=== PATIENT | female | born 1990 | race Caucasian/White ===

== ENCOUNTER 2020-05-24 12:53 | Emergency (ER) | payer MEDICAID ==
[~2020-05-24] VITALS: Ht 167.6 cm; Wt 72.7 kg
[2020-05-24] MEDS ORDERED: 0.9% SODIUM CHLORIDE 10 ML SYRINGE IVP PRN (13:30)
[2020-05-24] MEDS ORDERED: SODIUM CHLORIDE 0.9% 1,000 ML IV ONE ×2 (13:30→16:15)
[2020-05-24 14:27] LABS: BASOPHILS % (AUTO) 0.5 % (0.0-2.0); EOSINOPHILS % (AUTO) 0.8 % (1.0-6.0); HEMATOCRIT 42.7 % (36-46); HEMOGLOBIN 14.2 g/dL (12.0-16.0); LYMPHOCYTES # (AUTO) 1.3 K/uL (1.0-4.8); LYMPHOCYTES % (AUTO) 15.4 % (22.0-44.0); MEAN CORPUSCULAR HEMOGLOBIN 29.6 pg (26.0-34.0); MEAN CORPUSCULAR HGB CONC 33.2 G/dL (31.0-37.0); MEAN CORPUSCULAR VOLUME 89 fL (80-100); MONOCYTES # (AUTO) 0.5 K/uL (0.1-1.0); MONOCYTES % (AUTO) 5.6 % (2.0-9.0); NEUTROPHILS # (AUTO) 6.7 K/uL (1.8-7.7); NEUTROPHILS % (AUTO) 77.7 % (40.0-70.0); PLATELET COUNT (AUTO) 170 K/uL (150-450); RED BLOOD CELL COUNT(AUTO) 4.79 MIL/uL (4.00-5.20); RED CELL DISTRIBUTION WIDTH 13.6 % (11.5-14.5)
[2020-05-24 14:41] LABS: ANION GAP 13 mmol/L (8-16); CALCIUM, TOTAL 9.3 mg/dL (8.8-10.5); CARBON DIOXIDE 22 mmol/L (22-29); CHLORIDE 106 mmol/L (98-107); GLUCOSE,RANDOM 76 mg/dL (70-110); POTASSIUM 3.7 mmol/L (3.5-5.1); SODIUM SERUM 141 mmol/L (136-145); UREA NITROGEN, BLOOD 21 mg/dL (7-18)
[2020-05-24 14:44] LABS: GLOMERULAR FILTR. RATE CALC > 60 mL/min (>60)
[2020-05-24 14:47] LABS: ALANINE AMINOTRANSFERASE 11 U/L (12-78); ALBUMIN 3.9 g/dL (3.4-5.0); ALKALINE PHOSPHATASE 77 U/L (46-116); AMMONIA 49 umol/L (11-32); ASPARTATE AMINOTRANSFERASE 15 U/L (15-37); BILIRUBIN,TOTAL 0.7 mg/dL (0.1-1.0); CREATINE KINASE, TOTAL ONLY 50 U/L (26-192); TOTAL PROTEIN, SERUM 8.3 g/dL (6.4-8.2)
[2020-05-24 14:51] LABS: APPEARANCE,URINE CLOUDY (CLEAR); BILIRUBIN,URINE PRELIM. POSITIVE (NEGATIVE); GLUCOSE, URINE (UA) NEGATIVE (NEGATIVE); KETONES,URINE 40 mg/dL (NEGATIVE); LEUKOCYTE ESTERASE ,URINE NEGATIVE (NEGATIVE); NITRATE,URINE NEGATIVE (NEGATIVE); OCCULT BLOOD,URINE NEGATIVE (NEGATIVE); PROTEIN,URINE TRACE (NEGATIVE)
[2020-05-24 14:51] LABS: TROPONIN I < 0.02 ng/mL (0.00-0.05)
[2020-05-24 14:54] LABS: AMPHET/METH SCREEN,URINE POSITIVE (NEGATIVE); BARBITURATE SCREEN, URINE NEGATIVE (NEGATIVE); BENZODIAZEPINES SCREEN,URINE NEGATIVE (NEGATIVE); CANNABINOID SCREEN,URINE POSITIVE (NEGATIVE); COCAINE SCREEN,URINE NEGATIVE (NEGATIVE); METHADONE SCREEN, URINE NEGATIVE (NEGATIVE); OPIATE SCREEN,URINE NEGATIVE (NEGATIVE); PHENCYCLIDINE SCREEN,URINE NEGATIVE (NEGATIVE)
[2020-05-24 15:03] LABS: D-DIMER 1.93 mg/L FEU (0.00-0.50); PROTHROMBIN TIME 10.8 SEC (9.4-11.6)
[2020-05-24] MEDS ORDERED: LACTULOSE 20 GM/30 ML SOLUTION UDCUP PO ONE (16:00)
[2020-05-24 17:38] VITALS: BP 126/63
== END 2020-05-24 18:07 | disposition home or self-care (01) ==
LOC: EDBD 12:53 → EMS 12:53
DX: Z03.818 Encounter for observation for suspected exposure to other biological agents ruled out (principal); E86.0 Dehydration; F15.10 Other stimulant abuse, uncomplicated
CPT/HCPCS: 36415; 70450; 71045; 80053; 80307; 81003; 82140; 82550; 84484; 85025; 85379; 85610; 85730; 87040; 93005; 96360; 96361; 99285; G0480; U0003; 51702

== ENCOUNTER 2020-10-04 15:07 | Inpatient (IN) | payer MEDICAID ==
[~2020-10-04] VITALS: Ht 172.7 cm; Wt 94.9 kg
[2020-10-04 20:40] VITALS: BP 124/72
[2020-10-04] MEDS ORDERED: ZOLPIDEM TARTRATE 10 MG TABLET PO PRN (20:45)
[2020-10-04] MEDS ORDERED: HALOPERIDOL 5 MG TABLET PO PRN (20:45)
[2020-10-04] MEDS ORDERED: INFLUENZA VIRUS VACCINE QVS 2020-21 (6MO+)/PF 60 MCG/0.5 ML SYRINGE IM ONE (22:00)
[2020-10-05 07:02] VITALS: BP 121/76
[2020-10-05 16:13] VITALS: BP 118/82
[2020-10-05] MEDS ORDERED: OMEPRAZOLE 20 MG CAPSULE PO PRN (18:15)
[2020-10-05] MEDS ORDERED: ALBUTEROL SULFATE HFA 90 MCG/PUFF 8 GM INHALER IH PRN (18:15)
[2020-10-05] MEDS ORDERED: MAGNESIUM HYDROXIDE SUSPENSION 30 ML UDCUP PO PRN (18:15)
[2020-10-05] MEDS ORDERED: BACITRACIN 28 GM OINTMENT TP PRN (18:15)
[2020-10-05] MEDS ORDERED: ACETAMINOPHEN 325 MG TABLET PO PRN (18:15)
[2020-10-05] MEDS ORDERED: PETROLATUM,WHITE 28 GM JELLY TP PRN (18:15)
[2020-10-05] MEDS ORDERED: IBUPROFEN 600 MG TABLET PO PRN (18:15)
[2020-10-05] MEDS ORDERED: CloNIDine HCL 0.1 MG TABLET PO PRN (18:15)
[2020-10-05] MEDS ORDERED: MAG HYDROX/AL HYDROX/SIMETH ES 30 ML SUSPENSION UDCUP PO PRN (18:15)
[2020-10-05] MEDS ORDERED: ONDANSETRON HCL 4 MG TABLET PO PRN (18:15)
[2020-10-05] MEDS ORDERED: BENZOCAINE/MENTHOL LOZENGE PO PRN (18:15)
[2020-10-05] MEDS ORDERED: DOCUSATE SODIUM 100 MG CAPSULE PO PRN (18:15)
[2020-10-05] MEDS ORDERED: LOPERAMIDE HCL 2 MG CAPSULE PO PRN (18:15)
[2020-10-06 00:40] VITALS: BP 110/78
[2020-10-06] MEDS: BENZTROPINE MESYLATE 1 MG TABLET PO SCH ×2 (08:34→20:29)
[2020-10-06] MEDS: LORazepam 2 MG TABLET PO PRN (16:06)
[2020-10-06] MEDS ORDERED: NICOTINE 21 MG/24 HOUR PATCH TD PRN (18:00)
[2020-10-06] MEDS: OLANZapine 10 MG RAPDIS TABLET PO SCH (20:29)
[2020-10-07 01:07] VITALS: BP 104/73
[2020-10-07 08:25] VITALS: BP 114/63
[2020-10-07] MEDS: BENZTROPINE MESYLATE 1 MG TABLET PO SCH ×2 (08:50→20:33)
[2020-10-07 16:13] VITALS: BP 121/69
[2020-10-07] MEDS: OLANZapine 10 MG RAPDIS TABLET PO SCH (20:32)
[2020-10-08 00:56] VITALS: BP 120/73
[2020-10-08] MEDS: BENZTROPINE MESYLATE 1 MG TABLET PO SCH ×2 (08:44→20:31)
[2020-10-08] MEDS: LORazepam 2 MG TABLET PO PRN (17:02)
[2020-10-08] MEDS: OLANZapine 10 MG RAPDIS TABLET PO SCH (20:32)
[2020-10-09 00:18] VITALS: BP_SYST 100; BP_SYST 105; BP_DIAS 70; BP_DIAS 76
[2020-10-09] MEDS: BENZTROPINE MESYLATE 1 MG TABLET PO SCH ×2 (08:46→20:29)
[2020-10-09] MEDS: LORazepam 2 MG TABLET PO PRN ×2 (09:46→16:35)
[2020-10-09] MEDS: OLANZapine 10 MG RAPDIS TABLET PO SCH (20:29)
[2020-10-10 00:48] VITALS: BP 101/78
[2020-10-10] MEDS: BENZTROPINE MESYLATE 1 MG TABLET PO SCH ×2 (09:00→20:19)
[2020-10-10] MEDS: THIAMINE 100 MG TABLET PO SCH (09:00)
[2020-10-10] MEDS: FOLIC ACID 1 MG TABLET PO SCH (09:00)
[2020-10-10] MEDS: MULTIVITAMINS, THERAPEUTIC TABLET PO SCH (09:00)
[2020-10-10] MEDS: LORazepam 2 MG TABLET PO PRN (15:53)
[2020-10-10 17:19] VITALS: BP 135/76
[2020-10-10] MEDS: OLANZapine 10 MG RAPDIS TABLET PO SCH (20:19)
[2020-10-11 00:14] VITALS: BP 126/74
[2020-10-11 08:06] VITALS: BP 112/60
[2020-10-11 08:19] LABS: APPEARANCE,URINE CLEAR (CLEAR); BILIRUBIN,URINE NEGATIVE (NEGATIVE); GLUCOSE, URINE (UA) NEGATIVE (NEGATIVE); KETONES,URINE NEGATIVE (NEGATIVE); LEUKOCYTE ESTERASE ,URINE NEGATIVE (NEGATIVE); NITRATE,URINE NEGATIVE (NEGATIVE); OCCULT BLOOD,URINE NEGATIVE (NEGATIVE); PROTEIN,URINE NEGATIVE (NEGATIVE); UROBILINOGEN,URINE 0.2 mg/dL (<=1.0)
[2020-10-11 08:21] LABS: AMPHET/METH SCREEN,URINE NEGATIVE (NEGATIVE); BARBITURATE SCREEN, URINE NEGATIVE (NEGATIVE); BENZODIAZEPINES SCREEN,URINE NEGATIVE (NEGATIVE); CANNABINOID SCREEN,URINE POSITIVE (NEGATIVE); COCAINE SCREEN,URINE NEGATIVE (NEGATIVE); METHADONE SCREEN, URINE NEGATIVE (NEGATIVE); OPIATE SCREEN,URINE NEGATIVE (NEGATIVE); PHENCYCLIDINE SCREEN,URINE NEGATIVE (NEGATIVE)
[2020-10-11] MEDS: MULTIVITAMINS, THERAPEUTIC TABLET PO SCH (08:51)
[2020-10-11] MEDS: FOLIC ACID 1 MG TABLET PO SCH (08:52)
[2020-10-11] MEDS: BENZTROPINE MESYLATE 1 MG TABLET PO SCH (08:52)
[2020-10-11] MEDS: THIAMINE 100 MG TABLET PO SCH (08:52)
[2020-10-11] MEDS ORDERED: OLAN10TA6 PO (10:40)
[2020-10-11] MEDS ORDERED: BENZ1TAB10 PO (10:44)
== END 2020-10-11 11:45 | disposition home or self-care (01) | DRG 750 ==
LOC: B3A 20:23
PROVIDERS: ADMIT Psychiatry & Neurology Psychiatry; ATTEND Psychiatry & Neurology Psychiatry
DX: F20.0 Paranoid schizophrenia (principal); R45.851 Suicidal ideations; F19.10 Other psychoactive substance abuse, uncomplicated; F12.90 Cannabis use, unspecified, uncomplicated; F15.90 Other stimulant use, unspecified, uncomplicated; F32.9 Major depressive disorder, single episode, unspecified; F41.9 Anxiety disorder, unspecified; F10.10 Alcohol abuse, uncomplicated; Y90.9 Presence of alcohol in blood, level not specified; G47.00 Insomnia, unspecified; K59.00 Constipation, unspecified; Z28.21 Immunization not carried out because of patient refusal
CPT/HCPCS: 80307

== ENCOUNTER 2022-09-06 15:19 | Emergency (ER) | payer MEDICAID, OTHER ==
[~2022-09-06] VITALS: Ht 172.7 cm; Wt 77.3 kg
[~2022-09-06 15:19] MED LIST: BENZ1TAB96 PO; OLAN10TA26 PO
[2022-09-06 15:51] LABS: BASOPHILS % (AUTO) 0.6 % (0.0-2.0); EOSINOPHILS % (AUTO) 2.7 % (1.0-6.0); HEMATOCRIT 40.1 % (36-46); HEMOGLOBIN 13.1 g/dL (12.0-16.0); LYMPHOCYTES # (AUTO) 1.9 K/uL (1.0-4.8); LYMPHOCYTES % (AUTO) 25.2 % (22.0-44.0); MEAN CORPUSCULAR HEMOGLOBIN 28.9 pg (26.0-34.0); MEAN CORPUSCULAR HGB CONC 32.8 G/dL (31.0-37.0); MEAN CORPUSCULAR VOLUME 88 fL (80-100); MONOCYTES # (AUTO) 0.5 K/uL (0.1-1.0); MONOCYTES % (AUTO) 6.7 % (2.0-9.0); NEUTROPHILS # (AUTO) 4.9 K/uL (1.8-7.7); NEUTROPHILS % (AUTO) 64.8 % (40.0-70.0); PLATELET COUNT (AUTO) 462 K/uL (150-450); RED BLOOD CELL COUNT(AUTO) 4.55 MIL/uL (4.00-5.20); RED CELL DISTRIBUTION WIDTH 13.8 % (11.5-14.5)
[2022-09-06 16:03] LABS: ANION GAP 5 mmol/L (8-16); CALCIUM, TOTAL 8.6 mg/dL (8.8-10.5); CARBON DIOXIDE 30 mmol/L (22-29); CHLORIDE 105 mmol/L (98-107); CREATININE 0.64 mg/dL (0.60-1.30); GLUCOSE,RANDOM 100 mg/dL (70-110); POTASSIUM 3.7 mmol/L (3.5-5.1); SODIUM SERUM 140 mmol/L (136-145); UREA NITROGEN, BLOOD 18 mg/dL (7-18)
[2022-09-06 16:06] LABS: GLOMERULAR FILTR. RATE CALC > 60 mL/min (>60)
[2022-09-06 16:11] LABS: ALANINE AMINOTRANSFERASE 8 U/L (12-78); ALBUMIN 3.1 g/dL (3.4-5.0); ALKALINE PHOSPHATASE 78 U/L (46-116); ASPARTATE AMINOTRANSFERASE 8 U/L (15-37); BILIRUBIN,TOTAL 0.2 mg/dL (0.1-1.0); HCG,QUANTITATIVE < 1 mIU/mL (0-6)
[2022-09-06] MEDS ORDERED: PERMETHRIN 1% 60 ML LOTION TP ONE (16:45)
[2022-09-06 17:30] LABS: COVID AG,FIA SOURCE NASOPHARYNGEAL
[2022-09-06 21:12] VITALS: BP 112/61
== END 2022-09-06 22:04 | disposition home or self-care (01) ==
LOC: EMS 15:28
DX: F15.10 Other stimulant abuse, uncomplicated (principal); R45.851 Suicidal ideations; F32.A Depression, unspecified; Z20.822 Contact with and (suspected) exposure to COVID-19
CPT/HCPCS: 99283; 87426; 80053; 84702; 85025; 36415; 81025; G0480